=== PATIENT | female | born 1950 | race Caucasian/White ===

== ENCOUNTER 2025-03-16 16:20 | Emergency (ER) | payer MEDICARE, MEDICAID, SELFPAY ==
--- NOTE | ~2025-03-16 | CT_ITS ---
CLINICAL HISTORY: abd pain; PT REFUSED SCAN @ 20:00 CT abdomen and pelvis with contrast Comparison: None provided Findings: Motion and streak artifact limit evaluation. Atelectasis with ill-defined patchy consolidations left lower lobe. Calcified granulomas in the lungs. Cardiomegaly without significant pericardial effusion. Coronary artery calcifications. Bilateral perinephric stranding, nonspecific. Right-sided hypodense renal cysts. No obvious urolithiasis or hydronephrosis considering limitations of motion. No bowel obstruction, pneumoperitoneum, or pneumatosis. Prominent rectal mural thickening perirectal stranding tracking along the presacral space concerning for proctitis. Large colonic stool burden. No bowel obstruction. Scattered colonic diverticulosis without diverticulitis or colitis. Normal appendix. Distended bladder. No acute fracture. IMPRESSION: 1. Atelectasis with ill-defined patchy consolidations left lower lobe. Pneumonia not excluded. 2. Distended bladder. 3. Findings consistent with proctitis. This document has been electronically signed by: John Burgos MD on 03/16/2025 22:02:31
--- NOTE | ~2025-03-16 | XR_ITS ---
CLINICAL HISTORY: sob 1 view chest x-ray Comparison: None provided Findings: Left lower lobe patchy opacities/atelectasis. No pneumothorax. Enlarged cardiac silhouette. No acute fracture. IMPRESSION: Left lower lobe patchy opacities/atelectasis. This document has been electronically signed by: John Burgos MD on 03/16/2025 23:39:28
[2025-03-16 16:34] VITALS: BP 141/81; BP 149/86; PULSE 90; PULSE 98; RESP 19; TEMP 36.8; O2SAT 93; O2SAT 95; BMI 38.8
--- NOTE | 2025-03-16 17:19 | ED.ABDPAIN ---
HPI - Abdominal Pain General Chief Complaint: Abdominal Pain Stated Complaint: constipation x3 days Time Seen by Provider: 03/16/25 16:31 History of Present Illness HPI narrative: Patient is a 74-year-old female presented today with having constipation for the last 3 days. Patient noted hard stool. When she wiped she saw some blood. Patient from home. Has a history of constipation in the past. History of cholecystectomy. History of diabetes. No recent surgery. Patient from home. Feels bloating. No vomiting. No nausea. Similar to previous episodes. Patient claims she is on pain medicine. No coughing or congestion or upper respiratory symptoms. No pain on urination. She knows when she needs to go just can not go. Related Data Allergies Allergy/AdvReac Type Severity Reaction Status Date / Time mushroom Allergy Anaphylaxis Verified 03/16/25 16:39 Review of Systems Review of Systems Positive constipation Yes all other systems are reviewed and are negative PMFSH Past Medical History Attestation statement: The following information was validated with the patient. Social History Social History Advance Directives: No Advance Directives Information Provided: Yes Do you have a plan to hurt others: No Plan Physical Exam ED Vital Signs: Vital Signs - 24 hr 03/16/25 16:34 03/16/25 18:20 03/16/25 20:43 Temperature 98.2 F 98.0 F Pulse Rate 90 100 98 Respiratory Rate 19 18 18 Blood Pressure 141/81 H 163/93 H 120/68 Pulse Oximetry 93 93 92 Oxygen Delivery Method Room Air Room Air Room Air 03/16/25 22:11 Temperature Pulse Rate 92 Respiratory Rate 18 Blood Pressure 140/92 H Pulse Oximetry 94 Oxygen Delivery Method Room Air BMI result Body Mass Index 38.8 Procedures Procedure Narrative Procedure Narrative: With nursing and idris Valladares present. Return patient to the right side. I did a manual disimpaction. Large amount of stool resulted. We then proceeded to give patient a Fleet enema. Currently awaiting results. Patient feels moderate relief. Medical Decision Making Medical Decision Making [facility] Narrative: I manually disimpacted patient with moderate amount of stool resulted. After an enema additional stool was removed. Labs showed an elevated white blood cell count of 18. Question etiology. CT scan of the abdomen pelvis was ordered. First patient refused the CT scan. Later she accepted the CT scan after sedation. CT done no gross evidence of obstruction it did show a left lower lobe infiltrate proctocolitis. X-ray was done. The x-ray did show a left lower lobe infiltrate. Patient's white count is 18. He is not hypoxic. Lactate cultures ordered. Patient to get antibiotics. She lives at home. Has not been hospitalized recently. Started on Rocephin and azithromycin. Hospitalist team contacted. Will admit patient for further evaluation. Differential Diagnosis Differential Diagnoses: The differential diagnosis associated with the presentation includes Obstruction, perforation, diverticulitis, constipation Admission/Observation Consideration of admission/observation: Escalation of care including admission/observation considered Lab Data MDM Lab Attestation statement: I reviewed the patient's lab results. 03/16/25 17:46 03/16/25 17:46 Labs: Lab Results 03/16/25 03/16/25 03/16/25 Range/Units 17:46 19:08 22:44 WBC 18.1 H (4.8-10.8) X10*3/uL RBC 5.11 (4.20-5.50) X10*6/uL Hgb 16.2 H (12.0-16.0) g/dl Hct 47.0 (37.0-47.0) % MCV 92.0 (80.0-98.0) fL MCH 31.7 (27.0-33.0) pg MCHC 34.5 (31.0-35.0) g/dl RDW 13.8 (11.0-16.0) % Plt Count 287 (160-400) X10*3/uL MPV 8.5 L (9.4-12.3) fL Immature Gran % (Auto) 0.3 (0.0-0.4) % Neut % (Auto) 83.5 H (45-73) % Lymph % (Auto) 10.1 L (20-40) % Crockett % (Auto) 5.3 (2-11) % Eos % (Auto) 0.4 (0-4) % Baso % (Auto) 0.4 (0-2) % Lymph # (Auto) 1.8 (1.2-4.9) X10*3/uL Crockett # (Auto) 1.0 (0.1-1.2) X10*3/uL Eos # (Auto) 0.1 (0.0-0.4) X10*3/uL Baso # (Auto) 0.1 (0.0-0.2) X10*3/uL Abs Immat Gran (auto) 0.06 H (0.00-0.03) X10*3/uL Absolute Neuts (auto) 15.1 H (2.0-8.3) x10*3/uL Absolute Nucleated RBC 0.000 (0.0-0.012) X10*3/uL Nucleated RBC % (auto) 0.0 (0.0-0.2) /100WBC Sodium 139 (135-145) mmol/L Potassium 4.5 (3.3-5.1) mmol/L Chloride 102 (96-108) mmol/L Carbon Dioxide 29 (22-29) mmol/L Anion Gap 13 (12-20) BUN 31 H (9-16) mg/dL Creatinine 1.03 (0.5-1.4) mg/dL Estim Creat Clear Calc 55.0 Estimated GFR 52 POC Glucose 196 H (60-115) mg/dL Random Glucose 210 H (60-115) mg/dL Calcium 9.7 (8.4-10.2) mg/dL Total Bilirubin 0.4 (0.0-1.0) mg/dL Direct Bilirubin 0.1 (0.0-0.5) mg/dL AST 25 (5-31) U/L ALT 29 (0-31) U/L Alkaline Phosphatase 100 (39-117) U/L Total Protein 7.5 (6.5-8.0) g/dL Albumin 4.2 (3.5-5.0) g/dL Lipase 93 H (8-78) U/L Influenza Type A (PCR) NEGATIVE (Negative) Influenza Type B (PCR) NEGATIVE (Negative) RSV RNA Qual (PCR) NEGATIVE (Negative) SARS-CoV-2 RNA (RT-PCR) NEGATIVE (Negative) Medications Administered Discontinued Medications Generic Name Dose Route Start Last Admin Trade Name Freq PRN Reason Stop Dose Admin Sodium Chloride 500 mls @ 999 mls/hr 03/16/25 17:30 03/16/25 18:31 Ns IV 03/16/25 18:00 Infused .Q31M CORNELIUS Infusion Iohexol 100 ml 03/16/25 20:58 03/16/25 20:58 Iohexol 350 Mg/Ml 100 Ml Infus..Btl IV 03/16/25 20:59 85 ml ONCE ONE Administration Lorazepam 1 mg 03/16/25 20:15 03/16/25 20:23 Lorazepam 2 Mg/Ml Vial IVPUSH 03/16/25 20:16 1 mg ONCE ONE Administration Sodium Biphosphate/Sodium Phosphate 133 ml 03/16/25 16:53 03/16/25 17:02 Sodium Phosphate,Crockett-Dibasic 133 Ml Enema CA 03/16/25 16:54 133 ml ONCE ONE Administration Discharge Plan Discharge Clinical Impression: Abdominal pain, Constipation, Pneumonia Patient Disposition: Admitted As Inpatient Additional Instructions: If you change your mind please come back. We want to check your urine we wanted to see if your CT show any evidence of obstruction any evidence of perforation we wanted to find out why you have abdominal pain. You are leaving against medical advice. There is risk of . There is risk of infection. Print Language: Occitan
--- NOTE | 2025-03-16 17:51 | PC.NURSE ---
Provider in the room for rectal exam and fleet enema. Pt left on side for 20 minutes and was able to have BM. Pt cleaned up and repositioned. IV placed. Labs drawn as ordered. FLuids started
[2025-03-16 17:53] LABS: Hematocrit 47.0 % (37.0-47.0); Hemoglobin 16.2 g/dl (12.0-16.0); Imm Gran Abs Auto 0.06 X10*3/uL (0.00-0.03); Imm Gran Pct Auto 0.3 % (0.0-0.4); Lymphocytes Absolute Auto 1.8 X10*3/uL (1.2-4.9); MANUAL DIFF FLAG NO; Mean Corpuscular HGB Conc 34.5 g/dl (31.0-35.0); Mean Corpuscular Hemoglobin 31.7 pg (27.0-33.0); Mean Corpuscular Volume 92.0 fL (80.0-98.0); NRBC Abs Auto 0.000 X10*3/uL (0.0-0.012); NRBC Pct Auto 0.0 /100WBC (0.0-0.2); Platelet Count 287 X10*3/uL (160-400); Red Blood Count 5.11 X10*6/uL (4.20-5.50); White Blood Count 18.1 X10*3/uL (4.8-10.8)
[2025-03-16 18:11] LABS: Alanine Aminotransferase 29 U/L (0-31); Albumin Level 4.2 g/dL (3.5-5.0); Alkaline Phosphatase 100 U/L (39-117); Anion Gap 13 (12-20); Aspartate Amino Transferase 25 U/L (5-31); Blood Urea Nitrogen 31 mg/dL (9-16); Calcium 9.7 mg/dL (8.4-10.2); Carbon Dioxide 29 mmol/L (22-29); Chloride 102 mmol/L (96-108); Creatinine Clr Calc Pharmacy 55.0; Estimated Glomerular Filt Rate 52; Lipase 93 U/L (8-78); Potassium 4.5 mmol/L (3.3-5.1); Sodium 139 mmol/L (135-145); Total Protein 7.5 g/dL (6.5-8.0)
[2025-03-16 18:20] VITALS: BP 163/93; PULSE 100; RESP 18; TEMP 36.7; O2SAT 93
--- NOTE | 2025-03-16 18:42 | MHC.EDTECH ---
patient is a 1 assist to commode and patient had a large BM
[2025-03-16 19:12] LABS: Glucose, Whole Blood 196 mg/dL (60-115)
--- NOTE | 2025-03-16 19:40 | MHC.EDTECH ---
Berkley the EDT tried to educate the patient about having a meplex put on her buttocks for extra cushion due to her being red. The nurse and I walked in and assisted patient off the commode and she told me that she doesn't want Berkley helping her anymore. All she was doing is explaining to patient about her making her comfortable.
[2025-03-16] MEDS: LORazepam 2 MG/ML VIAL 1 MG IVPUSH (20:23)
[2025-03-16 20:43] VITALS: BP 120/68; PULSE 98; RESP 18; O2SAT 92
[2025-03-16] MEDS: iohexoL 350 MG/ML 100 ML INFUS..BTL IV (20:58)
[2025-03-16 22:11] VITALS: BP 140/92; PULSE 92; RESP 18; O2SAT 94
[2025-03-16 23:25] LABS: Resp Syncy Virus RNA Qual PCR NEGATIVE (Negative); SARS COV2 PCR INHOUSE NEGATIVE (Negative)
[2025-03-17 00:20] LABS: Appearance Urine Clear; Glucose Urine UA Negative (Negative); PH 6.0 (5.0-9.0); Specific Gravity - Urine 1.025 (1.005-1.025); UMIC TRIGGER UACC YES
[2025-03-17 00:23] LABS: UACC Culture Trigger YES
--- NOTE | 2025-03-17 02:39 | PC.NURSE ---
Pt stated multiple times that she wanted to go home. Dr. Lopez came and spoke with patient and patient again requesting to go home. Callbell in reach and patient understands use.
[2025-03-17 03:58] VITALS: BP 147/93; PULSE 105; RESP 18; TEMP 36.6; O2SAT 94
[2025-03-17 03:59] VITALS: BP 147/93; PULSE 105; RESP 18; TEMP 36.6; O2SAT 94
== END 2025-03-17 04:00 | disposition left against medical advice (07) ==
PROVIDERS: Emergency Provider Emergency Medicine Emergency Medical Services
DX: K59.00 Constipation, unspecified (principal); J18.9 Pneumonia, unspecified organism; R10.9 Unspecified abdominal pain; Z03.818 Encounter for observation for suspected exposure to other biological agents ruled out; E11.9 Type 2 diabetes mellitus without complications; Z53.29 Procedure and treatment not carried out because of patient's decision for other reasons
CPT/HCPCS: 36415; 71045; 74177; 80048; 80076; 81001; 82947; 83605; 83690; 85025; 87040; 87086; 87637; 96361; 96374; 96375; 99285; J0696; J2060; Q9967

== ENCOUNTER → 2025-03-16 17:17 | Outpatient (BNV) | payer MEDICARE, MEDICAID, SELFPAY | PROVIDERS: Emergency Provider Emergency Medicine Emergency Medical Services; Visit Provider Radiology Diagnostic Radiology | DX: N32.89 Other specified disorders of bladder (principal); J98.11 Atelectasis | CPT/HCPCS: 74177 ==

== ENCOUNTER 2025-03-19 00:41 | Emergency (ER) | payer MEDICARE, MEDICAID, SELFPAY ==
[2025-03-19] VITALS (8 sets, daily range): BP systolic 131–167; BP diastolic 73–110; PULSE 73–107; RESP 16–20; TEMP 36.2–37.6; O2SAT 93–97; BMI 38.2
--- NOTE | ~2025-03-19 | XR_ITS ---
CLINICAL HISTORY: dizziness, weakness 1 view chest x-ray Comparison: CR - XR CHEST 1V - 03/16/25 23:02 EDT Findings: Mild asymmetric elevation of the left hemidiaphragm with basilar subsegmental atelectasis or infiltrate. Heart size is upper limits of normal. No acute fracture. IMPRESSION: 1. Asymmetric elevation of the left hemidiaphragm with basilar subsegmental atelectasis or infiltrate This document has been electronically signed by: Daron Amaral MD, PHD on 03/19/2025 04:26:33
--- NOTE | 2025-03-19 02:42 | ECG_ITS ---
Test Reason : DIZZINESS Blood Pressure : */* mmHG Vent. Rate : 89 BPM Atrial Rate : 89 BPM P-R Int : 212 ms QRS Dur : 152 ms QT Int : 400 ms P-R-T Axes : 41 -80 9 degrees QTcB Int : 486 ms Sinus rhythm with 1st degree A-V block Left axis deviation Right bundle branch block Possible Lateral infarct , age undetermined Inferior infarct , age undetermined Abnormal ECG No previous ECGs available Referred By: Ana Cleveland Electronically Signed By: BIJU HANLEY
[2025-03-19 03:12] LABS: MANUAL DIFF FLAG NO
[2025-03-19 03:13] LABS: Hematocrit 44.4 % (37.0-47.0); Hemoglobin 15.0 g/dl (12.0-16.0); Imm Gran Abs Auto 0.05 X10*3/uL (0.00-0.03); Imm Gran Pct Auto 0.4 % (0.0-0.4); Lymphocytes Absolute Auto 2.2 X10*3/uL (1.2-4.9); Mean Corpuscular HGB Conc 33.8 g/dl (31.0-35.0); Mean Corpuscular Hemoglobin 31.7 pg (27.0-33.0); Mean Corpuscular Volume 93.9 fL (80.0-98.0); NRBC Abs Auto 0.000 X10*3/uL (0.0-0.012); NRBC Pct Auto 0.0 /100WBC (0.0-0.2); Platelet Count 258 X10*3/uL (160-400); Red Blood Count 4.73 X10*6/uL (4.20-5.50); White Blood Count 13.2 X10*3/uL (4.8-10.8)
[2025-03-19 03:14] LABS: Appearance Urine Clear; Glucose Urine UA Negative (Negative); PH 5.5 (5.0-9.0); Specific Gravity - Urine 1.015 (1.005-1.025); UMIC TRIGGER UACC YES
[2025-03-19 03:19] LABS: UACC Culture Trigger YES
[2025-03-19 03:26] LABS: Alanine Aminotransferase 26 U/L (0-31); Albumin Level 4.0 g/dL (3.5-5.0); Alkaline Phosphatase 113 U/L (39-117); Anion Gap 14 (12-20); Aspartate Amino Transferase 22 U/L (5-31); Blood Urea Nitrogen 29 mg/dL (9-16); Calcium 9.1 mg/dL (8.4-10.2); Carbon Dioxide 23 mmol/L (22-29); Chloride 108 mmol/L (96-108); Creatinine Clr Calc Pharmacy 47.9; Estimated Glomerular Filt Rate 45; Magnesium 2.3 mg/dL (1.6-2.6); Potassium 4.6 mmol/L (3.3-5.1); Sodium 140 mmol/L (135-145); Total Protein 7.2 g/dL (6.5-8.0)
[2025-03-19 03:31] LABS: Troponin-I High Sensitivity 4.6 ng/L (<3.5-17.0)
--- NOTE | 2025-03-19 06:19 | PC.NURSE ---
Addendum entered by Tres Mcfarland RN 03/19/25 06:22: SpO2 96% when getting up to commode Original Note: helped to commode, light assist. two large voids of urine and moderate sized formed brown BM
--- NOTE | 2025-03-19 07:28 | ED.WEAKNESS ---
HPI - Weakness General Chief complaint: Dizziness Stated complaint: DIZZINESS Time Seen by Provider: 03/19/25 02:22 Source: patient, RN notes reviewed and old records reviewed Mode of arrival: EMS Limitations: no limitations History of Present Illness ED Provider: Dr. Ana Cleveland HPI Narrative: 74-year-old female with history of diabetes, hypertension presenting by EMS from home after leaving against medical advice earlier today. Patient was admitted to the hospital for proctocolitis and left lower lobe pneumonia. She had to be disimpacted in the emergency department yesterday. Evidently decided to leave against medical advice rather than being admitted to the hospital and unfortunately when she got home, she felt extremely weak and states ?I made a mistake?. She feels globally weak and dizzy with standing and looking down. Denies headache or vision changes. Denies chest pain, difficulty breathing, cough or sputum production. She had none of the above yesterday either however, she did have an elevated white blood cell count at 18. Denies difficulty urinating. No further bowel movements since she was disimpacted yesterday. Denies fever today. Related Data Home Medications ?Medication ?Instructions ?Recorded ?Confirmed ascorbic acid (vitamin C) 1,000 mg 1,000 mg PO BID 03/19/25 03/19/25 tablet atorvastatin 40 mg tablet 40 mg PO DAILY 03/19/25 03/19/25 bisacodyl 10 mg rectal suppository 10 mg NC DAILY PRN constipation 03/19/25 03/19/25 cyanocobalamin (vitamin B-12) 1,000 mcg PO DAILY 03/19/25 03/19/25 1,000 mcg tablet famotidine 20 mg tablet 20 mg PO DAILY 03/19/25 03/19/25 furosemide 20 mg tablet 10 mg PO DAILY 03/19/25 03/19/25 gabapentin 300 mg capsule 300 mg PO TID@0700,1300,1900 03/19/25 03/19/25 gabapentin 600 mg tablet 600 mg PO BEDTIME 03/19/25 03/19/25 glipizide 10 mg tablet 10 mg PO BID 03/19/25 03/19/25 ketoconazole 2 % topical cream 1 appl topical BID 03/19/25 03/19/25 linaclotide 145 mcg capsule 145 mcg PO DAILY 03/19/25 03/19/25 (Linzess) linagliptin 5 mg tablet (Tradjenta) 5 mg PO DAILY 03/19/25 03/19/25 loratadine 10 mg tablet 10 mg PO DAILY 03/19/25 03/19/25 losartan 50 mg tablet 50 mg PO DAILY 03/19/25 03/19/25 metformin 1,000 mg tablet 1,000 mg PO BID 03/19/25 03/19/25 methenamine hippurate 1 gram tablet 1 g PO BID 03/19/25 03/19/25 semaglutide 2 mg/dose (8 mg/3 mL) 2 mg subcut TH 03/19/25 03/19/25 subcutaneous pen injector (Ozempic) sennosides 8.6 mg tablet (senna) 17.2 mg PO DAILY 03/19/25 03/19/25 vibegron 75 mg tablet (Gemtesa) 75 mg PO DAILY 03/19/25 03/19/25 Previous Rx's ?Medication ?Instructions ?Recorded cefuroxime axetil 500 mg tablet 500 mg PO BID #13 tabs 03/19/25 doxycycline hyclate 100 mg capsule 100 mg PO BID #13 caps 03/19/25 Allergies Allergy/AdvReac Type Severity Reaction Status Date / Time mushroom Allergy Anaphylaxis Verified 03/19/25 01:04 Review of Systems Review of Systems: Yes all other systems are reviewed and are negative (As per HPI) [facility] Past Medical History Attestation statement: The following information was validated with the patient. [facility] Narrative: Diabetes, hypertension, history of cholecystectomy Source: old records reviewed Social History Social History Advance Directives: No Advance Directives Information Provided: No Physical Exam Vital Signs: Vital Signs: Last Vital Signs Temp 97.9 F 03/19/25 07:44 Pulse 96 03/19/25 07:44 Resp 18 03/19/25 07:44 BP 134/84 03/19/25 07:44 Pulse Ox 96 03/19/25 07:44 O2 Del Method Room Air 03/19/25 07:44 BMI result Body Mass Index 38.2 GENERAL: Chronically ill-appearing, conversant, no acute distress. SKIN: Normal skin color for ethnicity, warm, dry, no rashes noted. HEENT: Normocephalic, atraumatic, no stridor, posterior oropharynx nonerythematous, EOMI. NECK: Soft, supple, full ROM, midline structures nontender, no step-offs, no deformities, no lymphadenopathy. CHEST: Heart regular rate and rhythm, no murmurs, symmetric chest rise and fall. PULMONARY: Clear to auscultation bilaterally, no labored breathing, no wheezes/rhales/ rhonchi. ABDOMINAL: Soft, nondistended, nontender, positive bowel sounds in all quadrants. : Deferred. MUSCULOSKELETAL: Normal tone, full range of motion, no deformities, bilateral 2+ peripheral edema. NEURO: Alert and oriented to person, CN II through XII intact, no focal neurologic deficits. PSYCHIATRIC: Flat affect, fluid speech, appropriate demeanor. Course Reevaluation(s) Reevaluation #1: 03/19/25 08:34 WU Pedro: Physician observation continued. Awaiting physical therapy evaluation, case management following for disposition. Time: 08:34 Reevaluation #2: 03/19/25 13:34 WU Pedro: Mario Pedroza from , patient declining short term rehab, will be discharged home with [facility]NA. She will go home via BLS. Observation care revealed that patient does not meet medical necessity for hospitalization. Final disposition discussed with patient. The patient completed observation care at 15:30 today, 03/19/25. Time: 13:34 Medications Administered Generic Name Dose Route Start Last Admin Trade Name Freq PRN Reason Stop Dose Admin Cefuroxime Axetil 500 mg 03/19/25 09:00 03/19/25 09:04 Cefuroxime Axetil 500 Mg Tablet PO 03/26/25 08:59 500 mg BID CORNELIUS Administration Gabapentin 300 mg 03/19/25 13:00 03/19/25 13:05 Gabapentin 300 Mg Capsule PO 300 mg TID@0700,1300,1900 CORNELIUS Administration Glipizide 10 mg 03/19/25 13:00 03/19/25 13:05 Glipizide 10 Mg Tablet PO 10 mg BID CORNELIUS Administration Metformin HCl 1,000 mg 03/19/25 13:00 03/19/25 13:05 Metformin Hcl 1,000 Mg Tablet PO 1,000 mg BID CORNELIUS Administration Discontinued Medications Generic Name Dose Route Start Last Admin Trade Name Freq PRN Reason Stop Dose Admin Doxycycline Monohydrate 100 mg 03/19/25 07:34 03/19/25 09:04 Doxycycline Monohydrate 100 Mg Capsule PO 03/19/25 07:35 100 mg ONCE ONE Administration Meclizine HCl 25 mg 03/19/25 02:42 03/19/25 03:07 Meclizine Hcl 25 Mg Tablet PO 03/19/25 02:43 25 mg ONCE ONE Administration Medical Decision Making Medical Decision Making [facility] Narrative: Patient presents today with generalized weakness. Differential diagnosis includes anemia, electrolyte abnormality, infection, rhabdomyolysis/myositis, neurologic disorders such as Guillain-[place] or myasthenia gravis, CVA, medication side effects, deconditioning, dehydration, among many others. A broad-based workup was initiated based on the patient's history and physical examination. They were watched closely on form grader with vital signs that were monitored during the duration of their stay. There are no signs of focal neurological deficit or weakness on exam. 3:08 a.m. review of patient's chart, white blood cell count yesterday appears to be close to 18, today has dropped to 13.2. She has no other signs or symptoms of infection including cough or fever. She has no chest pain or difficulty breathing on my exam today. That being said, she did have a left lower lobe infiltrate on her CT yesterday. Plan for oral antibiotics. I do not feel that she is capable of going home and caring for herself at this point. We will involve case management and physical therapy to see if she will need placement. Patient remains hemodynamically stable, resting comfortably. Differential Diagnosis Differential Diagnoses: The differential diagnosis associated with the presentation includes (As above) Admission/Observation Consideration of admission/observation: Escalation of care including admission/observation considered Time: 07:37 Date: 03/19/25 Provider: Ana Cleveland, DO Patient in physician observation for case management needs. No acute events reported overnight.? No current issues or complaints. VS stable. Patient is pending placement at facility/pending PT/CM eval. Will continue to monitor. Lab Data [facility] Lab Attestation statement: I reviewed the patient's lab results. 03/19/25 03:06 03/19/25 03:06 Labs: Lab Results 03/19/25 Range/Units 03:06 WBC 13.2 H (4.8-10.8) X10*3/uL RBC 4.73 (4.20-5.50) X10*6/uL Hgb 15.0 (12.0-16.0) g/dl Hct 44.4 (37.0-47.0) % MCV 93.9 (80.0-98.0) fL MCH 31.7 (27.0-33.0) pg MCHC 33.8 (31.0-35.0) g/dl RDW 13.9 (11.0-16.0) % Plt Count 258 (160-400) X10*3/uL MPV 8.7 L (9.4-12.3) fL Immature Gran % (Auto) 0.4 (0.0-0.4) % Neut % (Auto) 72.0 (45-73) % Lymph % (Auto) 16.5 L (20-40) % Whitman % (Auto) 7.8 (2-11) % Eos % (Auto) 2.8 (0-4) % Baso % (Auto) 0.5 (0-2) % Lymph # (Auto) 2.2 (1.2-4.9) X10*3/uL Whitman # (Auto) 1.0 (0.1-1.2) X10*3/uL Eos # (Auto) 0.4 (0.0-0.4) X10*3/uL Baso # (Auto) 0.1 (0.0-0.2) X10*3/uL Abs Immat Gran (auto) 0.05 H (0.00-0.03) X10*3/uL Absolute Neuts (auto) 9.5 H (2.0-8.3) x10*3/uL Absolute Nucleated RBC 0.000 (0.0-0.012) X10*3/uL Nucleated RBC % (auto) 0.0 (0.0-0.2) /100WBC Sodium 140 (135-145) mmol/L Potassium 4.6 (3.3-5.1) mmol/L Chloride 108 (96-108) mmol/L Carbon Dioxide 23 (22-29) mmol/L Anion Gap 14 (12-20) BUN 29 H (9-16) mg/dL Creatinine 1.17 (0.5-1.4) mg/dL Estim Creat Clear Calc 47.9 Estimated GFR 45 Random Glucose 173 H (60-115) mg/dL Calcium 9.1 D (8.4-10.2) mg/dL Magnesium 2.3 (1.6-2.6) mg/dL Total Bilirubin 0.2 (0.0-1.0) mg/dL AST 22 (5-31) U/L ALT 26 (0-31) U/L Alkaline Phosphatase 113 (39-117) U/L Troponin I High Sens 4.6 (<3.5-17.0) ng/L Total Protein 7.2 (6.5-8.0) g/dL Albumin 4.0 (3.5-5.0) g/dL Urine Color Yellow Urine Appearance Clear Urine pH 5.5 (5.0-9.0) Ur Specific [place] 1.015 (1.005-1.025) Urine Protein 100 (2+) H (Neg-Trace) mg/dL Urine Glucose (UA) Negative (Negative) mg/dL Urine Ketones Negative (Negative) mg/dL Urine Blood Negative (Negative) Urine Nitrite Negative (Negative) Ur Leukocyte Esterase Trace H (Negative) Urine RBC 0-2 (0-2) /HPF Urine WBC 6-10 H (0-5) /HPF Ur Squamous Epith Cells 3-5 (0-2) /HPF Urine Bacteria None Seen (None Seen) Hyaline Casts 0-2 (0-2) /LPF Discharge Plan Discharge Clinical Impression: Physical deconditioning, Left lower lobe pneumonia Patient Disposition: Home, Self-Care Instructions: Community Acquired Pneumonia (DC) Additional Instructions: You were evaluated in the emergency department. Your chest x-ray shows evidence of pneumonia. You are being treated with antibiotics, please complete the full course as prescribed. Please call your primary care provider within the next 2-3 days to schedule a follow-up appointment. You will need a repeat chest x-ray to confirm resolution of your pneumonia. Return to the emergency department if you develop worsening shortness of breath, chest pain, palpitations, fever 100.4? F or greater, or any other concerning symptoms. Prescriptions: New doxycycline hyclate 100 mg capsule 100 mg PO BID Qty: 13 0RF cefuroxime axetil 500 mg tablet 500 mg PO BID Qty: 13 0RF No Action losartan 50 mg tablet 50 mg PO DAILY atorvastatin 40 mg tablet 40 mg PO DAILY sennosides [senna] 8.6 mg tablet 17.2 mg PO DAILY ascorbic acid (vitamin C) 1,000 mg tablet 1,000 mg PO BID glipizide 10 mg tablet 10 mg PO BID cyanocobalamin (vitamin B-12) 1,000 mcg tablet 1,000 mcg PO DAILY methenamine hippurate 1 gram tablet 1 g PO BID famotidine 20 mg tablet 20 mg PO DAILY bisacodyl 10 mg suppository 10 mg NC DAILY PRN (Reason: constipation) metformin 1,000 mg tablet 1,000 mg PO BID gabapentin 300 mg capsule 300 mg PO TID@0700,1300,1900 furosemide 20 mg tablet 10 mg PO DAILY loratadine 10 mg tablet 10 mg PO DAILY Tradjenta 5 mg tablet 5 mg PO DAILY Gemtesa 75 mg tablet 75 mg PO DAILY Ozempic 2 mg/dose (8 mg/3 mL) pen injector 2 mg SUBCUT TH gabapentin 600 mg tablet 600 mg PO BEDTIME ketoconazole 2 % cream 1 appl topical BID Linzess 145 mcg capsule 145 mcg PO DAILY Print Language: Malagasy
--- NOTE | 2025-03-19 09:07 | PC.NURSE ---
This RN assumed care of patient @ 0700. Patient presented to ED after being recently seen and leaving AMA, c/o feeling dizzy and weak. Patient states I still feel dizzy just not as bad Patient placed on nut sifter. Medications verified with patients visiting nurse Radha via telephone. VSS and up to date. Awaiting PT/CM
--- NOTE | 2025-03-19 12:04 | PC.NURSE ---
Patient is a 74-year-old female with history of diabetes, hypertension presenting by EMS from home after leaving against medical advice earlier today. Patient was admitted to the hospital for proctocolitis and left lower lobe pneumonia. She had to be disimpacted in the emergency department yesterday. Evidently decided to leave against medical advice rather than being admitted to the hospital and unfortunately when she got home, she felt extremely weak and states ?I made a mistake?. She feels globally weak and dizzy with standing and looking down. Patient alert and oriented. Lungs with BBR. Respirations even and non-labored. Abdomen large, sl firm, distended with positive bowel sounds. Positiv pedal pulses with LE edema noted. LE reddened wit some swelling noted which patient states is normal.
--- NOTE | 2025-03-19 12:41 | PHA.MEDREC ---
Pharmacy Consult ? Medication Reconciliation Pharmacy has reviewed the medication reconciliation done by nursing. Also spoke to patient and visiting nurse Radha via phone to confirm med list. Per visiting nurse, patient injects ozempic on , she no longer takes doxycycline, furosemide is 10 mg daily. Patient takes gabapentin 300 mg 3 times throughout the day and also 600 mg at bedtime.
--- NOTE | 2025-03-19 13:16 | MHC.CM.ED ---
Addendum entered by Kasia Portillo 03/19/25 14:23: PCP is Dr Marcin Hernandez of [facility]. Addendum entered by Kasia Portillo 03/19/25 13:34: Owen CASTORENA booked for 3pm. [facility] with chart. Patient, Rosalie JORDAN and Radha WASHBURN aware. Original Note: Received case management consult overnight. Patient came to the ER due to weakness. Work up essentially negative. Physical therapy eval completed. Short term rehab is recommended. Met with patient in regards to discharge planning. Patient lives alone, uses a scooter for mobility and is active with [facility] for assisted. Patient is unsure of agency name. Patient is not interested in going to [facility]. Patient is requesting to return home with resumption of [facility]. Will attempt to add physical therapy to [facility] services. Patient was active with [facility] in the past. Referral made to try to determine VNA agency. [facility] CASTORENA will be booked. Radha WASHBURN and Chaitanya JORDAN aware. Continue to monitor for d/c needs.
[2025-03-19 15:49] LABS: Glucose, Whole Blood 187 mg/dL (60-115)
== END 2025-03-19 13:50 | disposition home or self-care (01) ==
PROVIDERS: Emergency Provider Emergency Medicine
DX: J18.1 Lobar pneumonia, unspecified organism (principal); R53.81 Other malaise; R42 Dizziness and giddiness; R53.1 Weakness
CPT/HCPCS: 36415; 71045; 80053; 81001; 82947; 83735; 84484; 85025; 87086; 93005; 97162; 99285

== ENCOUNTER → 2025-03-19 02:42 | Outpatient (BNV) | payer MEDICARE, MEDICAID, SELFPAY | PROVIDERS: Emergency Provider Emergency Medicine; Visit Provider General Practice | DX: R42 Dizziness and giddiness (principal); R53.1 Weakness | CPT/HCPCS: 71045 ==

== ENCOUNTER → 2025-03-19 02:42 | Outpatient (BNV) | payer MEDICARE, MEDICAID, SELFPAY | PROVIDERS: Emergency Provider Emergency Medicine; Visit Provider Internal Medicine | DX: I45.10 Unspecified right bundle-branch block (principal); I44.0 Atrioventricular block, first degree | CPT/HCPCS: 93010 ==